=== PATIENT | female | born 1940 | race Caucasian/White ===

== ENCOUNTER 2016-11-28 17:28 | Inpatient (IN) | payer MEDICARE, OTHER ==
[~2016-11-28] VITALS: Ht 152.4 cm; Wt 61.0 kg
[~2016-11-28 17:28] MED LIST: ALPR0.254 PO; ALPR1TAB2 PO; ASPI-621 PO; CEFD300C2 PO; CEPH-368 PO; CETI10CA PO; CHOL200012 PO; CIPR500T87 PO; CLON1PAT7 TD; CYAN10005 PO; ENOX40SY4 SQ; ENOX80SY5 SQ; FLUC200T PO; FOLI-17 PO; GABA600T2 PO; HYDR1KIT14 TP; HYDR20TA22 PO; LISI2.5T PO; LISI5TAB7 PO; MAGN400T26 PO; METH750T2 PO; OMEP-110 PO; OMEP40CA6 PO; OXYB5TAB7 PO; OXYC-229 PO; OXYC-302 PO; OXYC10TA32 PO; OXYC1TAB8 PO; PANT40TA3 PO; POLY17PO5 PO; POTA20PA8 PO; PROM25SU34 RC; SENN1TAB7 PO; SIMV40TA3 PO; SIMV5TAB PO; THIA100T6 PO; TRAM50TA2 PO; WARF1TAB7 PO; WARF5TAB7 PO-COUM
[2016-11-28] MEDS ORDERED: ONDANSETRON 2MG/ML, 2ML ONE (18:29)
[2016-11-28] MEDS ORDERED: SODIUM CHLORIDE FLUSH 10ML SYR IVF ONE (18:30)
[2016-11-28] MEDS ORDERED: ONDANSETRON 2MG/ML, 2ML IVPush ONE (18:30)
[2016-11-28] MEDS ORDERED: SODIUM CHLORIDE 0.9% 1,000ML IVBOLUS ONE (18:30)
[2016-11-28] MEDS ORDERED: AMOX600S36 PO (19:11)
[2016-11-28] MEDS ORDERED: CEPH-368 PO (19:11)
[2016-11-28 19:15] LABS: HEMOGLOBIN 13.8 g/dL (11.7-16.4)
[2016-11-28] MEDS ORDERED: DEXT1CAP PO (19:16)
[2016-11-28] MEDS ORDERED: SIMV20TA PO (19:16)
[2016-11-28] MEDS ORDERED: OXYC40TA27 PO (19:16)
[2016-11-28 19:27] LABS: ASPARTATE AMINO TRANSFERASE 27 U/L (15-37); BLOOD UREA NITROGEN 14 mg/dL (7-18)
[2016-11-28 19:33] LABS: IS PT STATUS REG ER OR PRE ER? YES
[2016-11-28] MEDS ORDERED: LEVOFLOXACIN/PMX 750MG/150ML 150 ML IV ONE (22:00)
[2016-11-28] MEDS ORDERED: LEVOFLOXACIN/PMX 750MG/150ML 150 ML ONE (22:24)
[2016-11-28] MEDS ORDERED: SODI453. PO (22:58)
[2016-11-29] MEDS ORDERED: LABETALOL 5MG/ML, 20ML IV PRN (02:00)
[2016-11-29] MEDS ORDERED: DOCUSATE 100 MG CAPSULE PO PRN (02:00)
[2016-11-29] MEDS ORDERED: BISACODYL 10 MG SUPP PR PRN (02:00)
[2016-11-29] MEDS ORDERED: LEVOFLOXACIN/PMX 500MG/100ML 100 ML IV SCH (02:00)
[2016-11-29] MEDS ORDERED: POLYETHYLENE GLYCOL 17 GM PACKET PO PRN (02:00)
[2016-11-29] MEDS ORDERED: ONDANSETRON 2MG/ML, 2ML IVP PRN (02:00)
[2016-11-29] MEDS ORDERED: TRAZODONE 50MG TABLET PO PRN (02:00)
[2016-11-29 05:57] LABS: BLOOD UREA NITROGEN 12 mg/dL (7-18); IS PT STATUS REG ER OR PRE ER? YES
[2016-11-29] MEDS ORDERED: OxyconTIN ER 40 MG TAB.ER PO SCH (09:00)
[2016-11-29] MEDS: GABAPENTIN 300 MG CAPSULE PO SCH (09:17)
[2016-11-29] MEDS: OMEPRAZOLE 20 MG CAPSULE.DR PO SCH (09:17)
[2016-11-29] MEDS: OxyconTIN ER 10 MG TAB.ER PO SCH ×2 (09:17→20:50)
[2016-11-29 11:41] LABS: IS PT STATUS REG ER OR PRE ER? YES
[2016-11-29] MEDS ORDERED: CEFTRIAXONE PMX 1GM/50ML 50 ML ONE (12:08)
[2016-11-29] MEDS: CEFTRIAXONE PMX 1GM/50ML 50 ML IV SCH (12:13)
[2016-11-29 17:05] VITALS: BP 107/61
[2016-11-29 19:21] VITALS: BP 120/73
[2016-11-29] MEDS: SIMVASTATIN 20 MG TABLET PO SCH (20:51)
[2016-11-30 01:08] VITALS: BP 108/53
[2016-11-30 07:07] VITALS: BP 123/64
[2016-11-30] MEDS: ASPIRIN 81 MG TABLET EC PO SCH (10:30)
[2016-11-30] MEDS: OMEPRAZOLE 20 MG CAPSULE.DR PO SCH (10:31)
[2016-11-30] MEDS: GABAPENTIN 300 MG CAPSULE PO SCH (10:31)
[2016-11-30] MEDS: OxyconTIN ER 10 MG TAB.ER PO SCH ×2 (10:33→21:12)
[2016-11-30] MEDS: CEFTRIAXONE PMX 1GM/50ML 50 ML IV SCH (12:13)
[2016-11-30 13:46] VITALS: BP 92/50
[2016-11-30 14:35] VITALS: BP 101/57
[2016-11-30 19:45] VITALS: BP 94/54
[2016-11-30] MEDS: SIMVASTATIN 20 MG TABLET PO SCH (21:12)
[2016-12-01 02:59] VITALS: BP 102/62
[2016-12-01] MEDS: ASPIRIN 81 MG TABLET EC PO SCH (05:13)
[2016-12-01 07:00] VITALS: BP 126/66
[2016-12-01] MEDS: OxyconTIN ER 10 MG TAB.ER PO SCH ×2 (08:12→21:17)
[2016-12-01] MEDS: GABAPENTIN 300 MG CAPSULE PO SCH (08:12)
[2016-12-01] MEDS: OMEPRAZOLE 20 MG CAPSULE.DR PO SCH (08:13)
[2016-12-01] MEDS ORDERED: REGADENOSON 0.4 MG/5 ML SYRINGE ONE (08:44)
[2016-12-01 12:57] VITALS: BP 103/45
[2016-12-01] MEDS ORDERED: WARFARIN 5 MG TABLET PO-COUM SCH (18:00)
[2016-12-01 20:39] VITALS: BP 130/69
[2016-12-01] MEDS: CIPROFLOXACIN 500 MG TABLET PO SCH (21:17)
[2016-12-01] MEDS: SIMVASTATIN 20 MG TABLET PO SCH (21:17)
[2016-12-02 01:41] VITALS: BP 124/79
[2016-12-02] MEDS: ASPIRIN 81 MG TABLET EC PO SCH (05:26)
[2016-12-02 06:52] VITALS: BP 131/71
[2016-12-02] MEDS: CIPROFLOXACIN 500 MG TABLET PO SCH (08:43)
[2016-12-02] MEDS: OxyconTIN ER 10 MG TAB.ER PO SCH (08:43)
[2016-12-02] MEDS: GABAPENTIN 300 MG CAPSULE PO SCH (08:43)
[2016-12-02] MEDS: OMEPRAZOLE 20 MG CAPSULE.DR PO SCH (08:43)
[2016-12-02] MEDS ORDERED: CIPR500T87 PO (09:40)
[2016-12-02 13:09] VITALS: BP 138/74
== END 2016-12-02 16:44 | disposition home health service (06) | DRG 690 ==
LOC: ED 17:43 → EDIP 22:11 → 3NE 11-29 15:09 → 4EST 11-30 14:24 → DCLOUNGE 12-02 15:49
PROVIDERS: ADMIT Internal Medicine; ATTEND Internal Medicine
PROC: 0T9B70Z Drainage of Bladder with Drainage Device, Via Natural or Artificial Opening (ICD-10-PCS; principal; 2016-11-28)
DX: N39.0 Urinary tract infection, site not specified (principal); D68.69 Other thrombophilia; C74.90 Malignant neoplasm of unspecified part of unspecified adrenal gland; I62.9 Nontraumatic intracranial hemorrhage, unspecified; I10 Essential (primary) hypertension; B96.5 Pseudomonas (aeruginosa) (mallei) (pseudomallei) as the cause of diseases classified elsewhere; E78.00 Pure hypercholesterolemia, unspecified; M54.9 Dorsalgia, unspecified; R00.1 Bradycardia, unspecified; T45.515A Adverse effect of anticoagulants, initial encounter; I25.10 Atherosclerotic heart disease of native coronary artery without angina pectoris; I25.2 Old myocardial infarction; Z74.01 Bed confinement status; Z79.01 Long term (current) use of anticoagulants; Z86.73 Personal history of transient ischemic attack (TIA), and cerebral infarction without residual deficits; Z87.440 Personal history of urinary (tract) infections; Z90.81 Acquired absence of spleen; Z95.2 Presence of prosthetic heart valve; Z90.49 Acquired absence of other specified parts of digestive tract; Z88.6 Allergy status to analgesic agent; Z88.5 Allergy status to narcotic agent; Z88.2 Allergy status to sulfonamides; Z88.8 Allergy status to other drugs, medicaments and biological substances; M24.562 Contracture, left knee; M24.561 Contracture, right knee
CPT/HCPCS: 36415; 74176; 78452; 80048; 80053; 81001; 83690; 84484; 85025; 85610; 85730; 87077; 87086; 87186; 93005; 93017; 96374; J0696; J1956; J2405; J2785; A9502; C9898; J7030

== ENCOUNTER 2016-12-17 02:32 | Inpatient (IN) | payer MEDICARE, OTHER ==
[~2016-12-17] VITALS: Ht 160 cm; Wt 57.1 kg
[~2016-12-17 02:32] MED LIST changes: +AMOX600S36 PO; -CEFD300C2 PO; +CEFD300C37 PO; +DEXT1CAP PO; +OXYC40TA27 PO; +SIMV20TA PO; +SODI453. PO
[2016-12-17 03:46] LABS: ASPARTATE AMINO TRANSFERASE 22 U/L (15-37); BLOOD UREA NITROGEN 23 mg/dL (7-18)
[2016-12-17 03:52] LABS: IS PT STATUS REG ER OR PRE ER? YES
[2016-12-17] MEDS ORDERED: PIPERACILLIN/TAZO/PMX 3.375GM 50 ML IVPB ONE (04:30)
[2016-12-17] MEDS ORDERED: PIPERACILLIN/TAZO/PMX 3.375GM 50 ML ONE (04:58)
[2016-12-17] MEDS ORDERED: SODIUM CHLORIDE 0.9% 1,000 ML IV SCH (06:23)
[2016-12-17 06:25] VITALS: BP 122/59
[2016-12-17] MEDS ORDERED: WARFARIN 5 MG TABLET PO-COUM SCH (06:30)
[2016-12-17] MEDS ORDERED: POLYETHYLENE GLYCOL 17 GM PACKET PO PRN (06:30)
[2016-12-17] MEDS ORDERED: DOCUSATE 100 MG CAPSULE PO PRN (06:30)
[2016-12-17] MEDS ORDERED: LABETALOL 5MG/ML, 20ML IV PRN (06:30)
[2016-12-17] MEDS ORDERED: ENOXAPARIN 40 MG/0.4 ML SQ SCH (06:30)
[2016-12-17] MEDS ORDERED: BISACODYL 10 MG SUPP PR PRN (06:30)
[2016-12-17] MEDS ORDERED: TRAZODONE 50MG TABLET PO PRN (06:30)
[2016-12-17] MEDS ORDERED: PIPERACILLIN/TAZO/PMX 3.375GM 50 ML IV SCH (06:30)
[2016-12-17 07:45] VITALS: BP 107/64
[2016-12-17] MEDS: GABAPENTIN 300 MG CAPSULE PO SCH (09:24)
[2016-12-17] MEDS: FUROSEMIDE 20 MG/2 ML IV SCH ×2 (09:24→17:24)
[2016-12-17] MEDS: OxyconTIN ER 10 MG TAB.ER PO SCH ×2 (09:24→20:12)
[2016-12-17 13:05] VITALS: BP 104/56
[2016-12-17] MEDS ORDERED: PHARMACY MAY ADJ FOR RENAL FX MC PRN (17:00)
[2016-12-17 18:53] VITALS: BP 115/62
[2016-12-17] MEDS: SIMVASTATIN 20 MG TABLET PO SCH (20:12)
[2016-12-17] MEDS: PIPERACILLIN/TAZO/PMX 3.375GM 50 ML IV SCH (20:13)
[2016-12-18] MEDS: OXYcodone/APAP 10/325MG TABLET PO PRN
[2016-12-18] MEDS: PIPERACILLIN/TAZO/PMX 3.375GM 50 ML IV SCH ×3 (03:28→19:58)
[2016-12-18 03:34] VITALS: BP 91/55
[2016-12-18 06:45] LABS: ASPARTATE AMINO TRANSFERASE 16 U/L (15-37); BLOOD UREA NITROGEN 22 mg/dL (7-18)
[2016-12-18 07:48] VITALS: BP 85/47
[2016-12-18 08:42] VITALS: BP_SYST 100; BP_SYST 94; BP_DIAS 51; BP_DIAS 64
[2016-12-18] MEDS: GABAPENTIN 300 MG CAPSULE PO SCH (08:57)
[2016-12-18] MEDS: OxyconTIN ER 10 MG TAB.ER PO SCH ×2 (08:57→19:58)
[2016-12-18 08:59] VITALS: BP 102/58
[2016-12-18] MEDS ORDERED: FUROSEMIDE 20 MG/2 ML IV SCH (09:00)
[2016-12-18] MEDS: ONDANSETRON ODT 4 MG PO PRN (10:04)
[2016-12-18 13:51] VITALS: BP 88/56
[2016-12-18] MEDS: SIMVASTATIN 20 MG TABLET PO SCH (19:58)
[2016-12-18 20:48] VITALS: BP 96/61
[2016-12-19 01:14] VITALS: BP 96/58
[2016-12-19] MEDS: PIPERACILLIN/TAZO/PMX 3.375GM 50 ML IV SCH ×3 (04:09→20:46)
[2016-12-19 05:45] LABS: ASPARTATE AMINO TRANSFERASE 35 U/L (15-37); BLOOD UREA NITROGEN 20 mg/dL (7-18)
[2016-12-19 07:21] VITALS: BP 108/65
[2016-12-19] MEDS: GABAPENTIN 300 MG CAPSULE PO SCH (09:32)
[2016-12-19] MEDS: OxyconTIN ER 10 MG TAB.ER PO SCH ×2 (09:32→20:46)
[2016-12-19 14:12] VITALS: BP 103/61
[2016-12-19 19:07] VITALS: BP 100/56
[2016-12-19] MEDS: SIMVASTATIN 20 MG TABLET PO SCH (20:46)
[2016-12-20 01:27] VITALS: BP 108/63
[2016-12-20] MEDS: PIPERACILLIN/TAZO/PMX 3.375GM 50 ML IV SCH (05:04)
[2016-12-20 05:32] LABS: BLOOD UREA NITROGEN 23 mg/dL (7-18)
[2016-12-20 06:40] LABS: ANISOCYTOSIS 1+; ECHINOCYTES 1+; POIKILOCYTOSIS 1+
[2016-12-20 07:12] VITALS: BP 118/69
[2016-12-20] MEDS: GABAPENTIN 300 MG CAPSULE PO SCH (09:51)
[2016-12-20] MEDS: OxyconTIN ER 10 MG TAB.ER PO SCH ×2 (09:52→21:27)
[2016-12-20] MEDS ORDERED: FOSFOMYCIN 3 GM PACKET PO ONE (13:00)
[2016-12-20 13:50] VITALS: BP 126/74
[2016-12-20] MEDS ORDERED: WARFARIN 2 MG TABLET PO-COUM ONE (18:00)
[2016-12-20 19:52] VITALS: BP 136/74
[2016-12-20] MEDS: ONDANSETRON ODT 4 MG PO PRN (21:27)
[2016-12-20] MEDS: SIMVASTATIN 20 MG TABLET PO SCH (21:27)
[2016-12-21 01:26] VITALS: BP 140/60
[2016-12-21 05:27] LABS: BLOOD UREA NITROGEN 19 mg/dL (7-18)
[2016-12-21 05:28] LABS: ASPARTATE AMINO TRANSFERASE 29 U/L (15-37)
[2016-12-21 08:01] VITALS: BP 132/78
[2016-12-21] MEDS: OxyconTIN ER 10 MG TAB.ER PO SCH ×2 (08:45→20:39)
[2016-12-21] MEDS: ONDANSETRON ODT 4 MG PO PRN (08:45)
[2016-12-21] MEDS: GABAPENTIN 300 MG CAPSULE PO SCH (08:45)
[2016-12-21] MEDS: ENOXAPARIN 60 MG/0.6 ML SQ SCH ×2 (08:45→20:39)
[2016-12-21] MEDS: TAMSULOSIN 0.4 MG CAP.ER.24H PO SCH (12:02)
[2016-12-21 13:25] VITALS: BP 125/62
[2016-12-21] MEDS ORDERED: WARFARIN 7.5 MG TABLET PO-COUM ONE (18:00)
[2016-12-21] MEDS: SIMVASTATIN 20 MG TABLET PO SCH (20:39)
[2016-12-21 20:43] VITALS: BP 136/68
[2016-12-22 02:13] VITALS: BP 131/68
[2016-12-22 07:44] VITALS: BP 130/67
[2016-12-22] MEDS: TAMSULOSIN 0.4 MG CAP.ER.24H PO SCH (10:05)
[2016-12-22] MEDS: ENOXAPARIN 60 MG/0.6 ML SQ SCH (10:05)
[2016-12-22] MEDS: GABAPENTIN 300 MG CAPSULE PO SCH (10:05)
[2016-12-22] MEDS: OXYcodone/APAP 10/325MG TABLET PO PRN (10:13)
[2016-12-22] MEDS: OxyconTIN ER 10 MG TAB.ER PO SCH (10:31)
[2016-12-22] MEDS ORDERED: TAMS-11 PO (12:22)
[2016-12-22 13:15] VITALS: BP 104/51
[2016-12-22] MEDS ORDERED: WARFARIN 5 MG TABLET PO-COUM ONE (18:00)
== END 2016-12-22 18:30 | disposition home health service (06) | DRG 291 ==
LOC: ED 04:04 → EDIP 05:08 → 4WST 06:06 → 3NW 12-20 18:33
PROVIDERS: ADMIT Internal Medicine; ATTEND Internal Medicine
PROC: 0T9B70Z Drainage of Bladder with Drainage Device, Via Natural or Artificial Opening (ICD-10-PCS; principal; 2016-12-17)
DX: I11.0 Hypertensive heart disease with heart failure (principal); E43 Unspecified severe protein-calorie malnutrition; C74.00 Malignant neoplasm of cortex of unspecified adrenal gland; N39.0 Urinary tract infection, site not specified; I50.43 Acute on chronic combined systolic (congestive) and diastolic (congestive) heart failure; I25.10 Atherosclerotic heart disease of native coronary artery without angina pectoris; R79.1 Abnormal coagulation profile; B95.2 Enterococcus as the cause of diseases classified elsewhere; Z16.21 Resistance to vancomycin; B96.20 Unspecified Escherichia coli [E. coli] as the cause of diseases classified elsewhere; R31.29 Other microscopic hematuria; I25.2 Old myocardial infarction; Z85.858 Personal history of malignant neoplasm of other endocrine glands; Z86.73 Personal history of transient ischemic attack (TIA), and cerebral infarction without residual deficits; Z95.2 Presence of prosthetic heart valve; Z90.81 Acquired absence of spleen; Z88.6 Allergy status to analgesic agent; Z88.2 Allergy status to sulfonamides; Z88.8 Allergy status to other drugs, medicaments and biological substances; Z68.22 Body mass index [BMI] 22.0-22.9, adult; Z90.49 Acquired absence of other specified parts of digestive tract
CPT/HCPCS: 36415; 71010; 80048; 80053; 81001; 82040; 83880; 84484; 85025; 85610; 87040; 87077; 87086; 87186; 93005; 93306; 99285; J1650; J2543; Q0162; J1940

== ENCOUNTER 2017-01-12 23:20 | Emergency (ER) | payer MEDICARE, MEDICAID ==
[~2017-01-12] VITALS: Ht 152.4 cm; Wt 45.5 kg
[~2017-01-12 23:20] MED LIST changes: +TAMS-11 PO
[2017-01-13 00:39] LABS: ASPARTATE AMINO TRANSFERASE 35 U/L (15-37); BLOOD UREA NITROGEN 22 mg/dL (7-18)
[2017-01-13] MEDS ORDERED: NITROFURANTOIN (MACROBID) 100 MG CAPSULE PO ONE (01:30)
[2017-01-13 02:05] VITALS: BP 148/68
[2017-01-14] MEDS ORDERED: CHOL20002 PO (17:43)
[2017-01-14] MEDS ORDERED: MEGE400O2 PO (17:43)
[2017-01-14] MEDS ORDERED: DOCU100C PO (17:43)
[2017-01-14] MEDS ORDERED: OMEP40CA6 PO (17:43)
[2017-01-14] MEDS ORDERED: CEPH-368 PO (17:43)
[2017-01-14] MEDS ORDERED: GABA600T2 PO (17:43)
[2017-01-14] MEDS ORDERED: ALPR0.254 PO (17:43)
[2017-01-14] MEDS ORDERED: GABA100C8 PO (17:43)
[2017-01-14] MEDS ORDERED: ANTIDIARRHEA PO (17:43)
[2017-01-14] MEDS ORDERED: WARF3TAB7 PO (17:43)
[2017-01-14] MEDS ORDERED: allertec PO (17:43)
[2017-01-14] MEDS ORDERED: WARF1TAB7 PO (17:43)
== END 2017-01-13 02:08 | disposition home or self-care (01) ==
LOC: ED 23:59
DX: N30.00 Acute cystitis without hematuria (principal); E86.0 Dehydration; I10 Essential (primary) hypertension; M54.9 Dorsalgia, unspecified; G89.29 Other chronic pain; Z95.2 Presence of prosthetic heart valve; Z79.01 Long term (current) use of anticoagulants; Z88.2 Allergy status to sulfonamides
CPT/HCPCS: 36415; 51701; 80053; 81001; 85025; 87077; 87086; 87106

== ENCOUNTER 2017-01-14 14:39 | Inpatient (IN) | payer MEDICARE, OTHER, MEDICAID ==
[~2017-01-14] VITALS: Ht 167.6 cm; Wt 54.1 kg
[2017-01-14] MEDS ORDERED: SODIUM CHLORIDE FLUSH 10ML SYR IVF ONE (15:00)
[2017-01-14 15:27] LABS: ASPARTATE AMINO TRANSFERASE 31 U/L (15-37); BLOOD UREA NITROGEN 20 mg/dL (7-18)
[2017-01-14 15:35] LABS: ANISOCYTOSIS 1+; ECHINOCYTES 1+
[2017-01-14] MEDS ORDERED: PHYTONADIONE 5 MG TABLET PO ONE (16:30)
[2017-01-14] MEDS ORDERED: CEFTRIAXONE 1,000 MG in SODIUM CHLORIDE 0.9% 50 ML IV ONE (17:00)
[2017-01-14] MEDS ORDERED: SODIUM CHLORIDE 0.9% 1,000 ML IV SCH (17:14)
[2017-01-14] MEDS ORDERED: ONDANSETRON 2MG/ML, 2ML IVPush PRN (17:30)
[2017-01-14] MEDS ORDERED: ONDANSETRON ODT 4 MG PO PRN (17:30)
[2017-01-14] MEDS ORDERED: HEPARIN 5,000 UNITS/ML, 1ML SQ SCH (17:30)
[2017-01-14] MEDS ORDERED: allertec PO (17:43)
[2017-01-14] MEDS ORDERED: CEPH-368 PO (17:43)
[2017-01-14] MEDS ORDERED: GABA100C8 PO (17:43)
[2017-01-14] MEDS ORDERED: ALPR0.254 PO (17:43)
[2017-01-14] MEDS ORDERED: DOCU100C PO (17:43)
[2017-01-14] MEDS ORDERED: ANTIDIARRHEA PO (17:43)
[2017-01-14] MEDS ORDERED: WARF1TAB7 PO (17:43)
[2017-01-14] MEDS ORDERED: CHOL20002 PO (17:43)
[2017-01-14] MEDS ORDERED: WARF3TAB7 PO (17:43)
[2017-01-14] MEDS ORDERED: MEGE400O2 PO (17:43)
[2017-01-14] MEDS ORDERED: OMEP40CA6 PO (17:43)
[2017-01-14] MEDS ORDERED: GABA600T2 PO (17:43)
[2017-01-14] MEDS ORDERED: ERTAPENEM 1 GM in SODIUM CHLORIDE 0.9% 50 ML IV SCH (18:30)
[2017-01-14 18:45] VITALS: BP 154/74
[2017-01-14] MEDS: GABAPENTIN 300 MG CAPSULE PO SCH (20:14)
[2017-01-14] MEDS: SIMVASTATIN 40 MG TABLET PO SCH (20:14)
[2017-01-14] MEDS ORDERED: SIMVASTATIN 20 MG TABLET PO SCH (21:00)
[2017-01-14] MEDS ORDERED: OxyconTIN ER 40 MG TAB.ER PO SCH (21:00)
[2017-01-14] MEDS ORDERED: ALPRazolam 1MG TABLET PO SCH (21:00)
[2017-01-14] MEDS ORDERED: TEMPLATE NON-FORMULARY MED. (Gabapentin** 600 MG) PO SCH (21:00)
[2017-01-14] MEDS: LINEZOLID PMX 600MG/300ML 300 ML IV SCH (21:41)
[2017-01-15 03:08] VITALS: BP 152/69
[2017-01-15 06:14] LABS: ASPARTATE AMINO TRANSFERASE 24 U/L (15-37); BLOOD UREA NITROGEN 19 mg/dL (7-18)
[2017-01-15 07:46] VITALS: BP 138/68
[2017-01-15] MEDS: OxyconTIN ER 10 MG TAB.ER PO SCH (09:31)
[2017-01-15] MEDS: GABAPENTIN 300 MG CAPSULE PO SCH ×2 (09:31→20:43)
[2017-01-15] MEDS: TAMSULOSIN 0.4 MG CAP.ER.24H PO SCH (09:31)
[2017-01-15] MEDS: LINEZOLID PMX 600MG/300ML 300 ML IV SCH ×2 (09:32→20:43)
[2017-01-15] MEDS ORDERED: POTASSIUM CHLORIDE 20 MEQ TAB.ER.PRT PO ONE (11:30)
[2017-01-15 14:30] VITALS: BP 114/71
[2017-01-15] MEDS ORDERED: POTASSIUM CHLORIDE 20 MEQ in SODIUM CHLORIDE 0.9% 1,000 ML IV SCH (18:30)
[2017-01-15] MEDS: ERTAPENEM 1 GM in SODIUM CHLORIDE 0.9% 100 ML IV SCH (19:37)
[2017-01-15] MEDS: SIMVASTATIN 40 MG TABLET PO SCH (20:43)
[2017-01-15 20:48] VITALS: BP 147/68
[2017-01-15] MEDS: DOCUSATE 100 MG CAPSULE PO SCH (23:35)
[2017-01-16 05:07] VITALS: BP 121/64
[2017-01-16 05:29] LABS: BLOOD UREA NITROGEN 11 mg/dL (7-18)
[2017-01-16 05:48] LABS: ECHINOCYTES 1+; HOWELL-JOLLY BODIES 1+; POIKILOCYTOSIS 1+
[2017-01-16 05:49] LABS: ANISOCYTOSIS 1+; LARGE PLATELETS 1+
[2017-01-16] MEDS: LINEZOLID PMX 600MG/300ML 300 ML IV SCH ×2 (08:24→16:40)
[2017-01-16] MEDS: ENOXAPARIN 40 MG/0.4 ML SQ SCH ×2 (08:25→19:42)
[2017-01-16] MEDS: DOCUSATE 100 MG CAPSULE PO SCH ×2 (08:25→21:00)
[2017-01-16] MEDS: TAMSULOSIN 0.4 MG CAP.ER.24H PO SCH (08:25)
[2017-01-16] MEDS: GABAPENTIN 300 MG CAPSULE PO SCH ×2 (08:25→19:42)
[2017-01-16 08:30] VITALS: BP 142/76
[2017-01-16] MEDS: OxyconTIN ER 10 MG TAB.ER PO SCH (08:31)
[2017-01-16] MEDS ORDERED: POTASSIUM CHLORIDE 10% 40 MEQ/30 ML UDC PO ONE (12:30)
[2017-01-16 14:30] VITALS: BP 120/66
[2017-01-16] MEDS ORDERED: WARFARIN 5 MG TABLET PO-COUM SCH (18:00)
[2017-01-16 19:27] VITALS: BP 131/69
[2017-01-16] MEDS: SIMVASTATIN 40 MG TABLET PO SCH (19:43)
[2017-01-16] MEDS: ERTAPENEM 1 GM in SODIUM CHLORIDE 0.9% 100 ML IV SCH (19:43)
[2017-01-17] MEDS: LINEZOLID PMX 600MG/300ML 300 ML IV SCH (03:24)
[2017-01-17 03:49] VITALS: BP 124/67
[2017-01-17] MEDS: ENOXAPARIN 40 MG/0.4 ML SQ SCH (06:14)
[2017-01-17 08:02] VITALS: BP 130/72
[2017-01-17] MEDS: GABAPENTIN 300 MG CAPSULE PO SCH (08:36)
[2017-01-17] MEDS: DOCUSATE 100 MG CAPSULE PO SCH (08:36)
[2017-01-17] MEDS: TAMSULOSIN 0.4 MG CAP.ER.24H PO SCH (08:36)
[2017-01-17] MEDS: OxyconTIN ER 10 MG TAB.ER PO SCH (08:36)
[2017-01-17 14:11] VITALS: BP 124/70
[2017-01-17] MEDS ORDERED: SIMV40TA3 PO (14:35)
[2017-01-17] MEDS ORDERED: TAMS0.4C2 PO (14:35)
[2017-01-17] MEDS ORDERED: WARF5TAB7 PO (14:36)
[2017-01-17] MEDS ORDERED: ONDA4TAB13 SL (14:38)
[2017-01-17] MEDS ORDERED: ONDA4VIA4 IVPush (14:40)
[2017-01-17] MEDS ORDERED: DOCU100C8 PO (14:40)
[2017-01-17] MEDS ORDERED: ENOX40SY4 SQ (14:41)
[2017-01-17] MEDS ORDERED: ERTA1VIA IV (14:42)
[2017-01-17] MEDS ORDERED: GABA300C10 PO (14:43)
[2017-01-17] MEDS ORDERED: LINE600I9 IV (14:44)
[2017-01-17] MEDS ORDERED: BACL-19 PO (14:46)
[2017-01-17] MEDS ORDERED: WARFARIN 5 MG TABLET PO-COUM SCH (18:00)
== END 2017-01-17 15:34 | DRG 71 ==
LOC: ED 16:41 → EDIP 16:53 → 3NE 18:02
PROVIDERS: ADMIT Family Medicine; ATTEND Family Medicine
PROC: 0T9B70Z Drainage of Bladder with Drainage Device, Via Natural or Artificial Opening (ICD-10-PCS; principal; 2017-01-14)
PROC: 02HV33Z Insertion of Infusion Device into Superior Vena Cava, Percutaneous Approach (ICD-10-PCS; 2017-01-17)
PROC: B5181ZA Fluoroscopy of Superior Vena Cava using Low Osmolar Contrast, Guidance (ICD-10-PCS; 2017-01-17)
DX: G93.41 Metabolic encephalopathy (principal); N39.0 Urinary tract infection, site not specified; I50.42 Chronic combined systolic (congestive) and diastolic (congestive) heart failure; C74.00 Malignant neoplasm of cortex of unspecified adrenal gland; I62.9 Nontraumatic intracranial hemorrhage, unspecified; I95.9 Hypotension, unspecified; E78.00 Pure hypercholesterolemia, unspecified; I25.10 Atherosclerotic heart disease of native coronary artery without angina pectoris; I11.0 Hypertensive heart disease with heart failure; J32.9 Chronic sinusitis, unspecified; G89.29 Other chronic pain; E87.6 Hypokalemia; B96.20 Unspecified Escherichia coli [E. coli] as the cause of diseases classified elsewhere; Z16.12 Extended spectrum beta lactamase (ESBL) resistance; L89.90 Pressure ulcer of unspecified site, unspecified stage; R62.7 Adult failure to thrive; Z95.2 Presence of prosthetic heart valve; Z79.01 Long term (current) use of anticoagulants; Z85.858 Personal history of malignant neoplasm of other endocrine glands; I25.2 Old myocardial infarction; Z90.81 Acquired absence of spleen; Z90.49 Acquired absence of other specified parts of digestive tract; Z88.5 Allergy status to narcotic agent; Z88.2 Allergy status to sulfonamides; Z88.8 Allergy status to other drugs, medicaments and biological substances; R53.1 Weakness
CPT/HCPCS: 36415; 36569; 51701; 70450; 76937; 77001; 80048; 80053; 81001; 83735; 85025; 85610; 85730; 87077; 87086; 87106; 87186; 93005; J0696; J1335; J1650; J2020; C1751; P9612

== ENCOUNTER 2017-02-24 21:43 | Inpatient (IN) | payer MEDICARE, MEDICAID ==
[~2017-02-24] VITALS: Ht 152.4 cm; Wt 55.2 kg
[~2017-02-24 21:43] MED LIST changes: +ANTIDIARRHEA PO; +BACL-19 PO; +CHOL20002 PO; +DOCU100C PO; +DOCU100C8 PO; +ERTA1VIA IV; +GABA-826 PO; +GABA300C10 PO; +LINE600I9 IV; +MEGE400O2 PO; +ONDA4TAB13 SL; +ONDA4VIA4 IVPush; +TAMS0.4C2 PO; +WARF3TAB7 PO; +WARF5TAB7 PO; +allertec PO
[2017-02-24] MEDS ORDERED: SODIUM CHLORIDE 0.9% 1,000ML IVBOLUS ONE (23:30)
[2017-02-24] MEDS ORDERED: SODIUM CHLORIDE FLUSH 10ML SYR IVF ONE (23:30)
[2017-02-25 00:11] LABS: ASPARTATE AMINO TRANSFERASE 23 U/L (15-37); BLOOD UREA NITROGEN 26 mg/dL (7-18)
[2017-02-25 00:26] LABS: DIFF TOTAL CELLS COUNTED 100 CELL DIFF
[2017-02-25 00:29] LABS: VERIFY COUNTS? YES
[2017-02-25 00:30] LABS: LARGE PLATELETS 1+
[2017-02-25] MEDS ORDERED: DEXT1CAP PO (00:50)
[2017-02-25] MEDS ORDERED: LINEZOLID PMX 600MG/300ML 300 ML IV ONE (01:30)
[2017-02-25] MEDS ORDERED: SODIUM CHLORIDE 0.9% 1,000 ML IV SCH (04:12)
[2017-02-25] MEDS ORDERED: BISACODYL 10 MG SUPP PR PRN (04:30)
[2017-02-25] MEDS ORDERED: DOCUSATE 100 MG CAPSULE PO PRN (04:30)
[2017-02-25] MEDS ORDERED: POLYETHYLENE GLYCOL 17 GM PACKET PO PRN (04:30)
[2017-02-25] MEDS ORDERED: VANCOMYCIN PER PHARMACY MC PRN (04:30)
[2017-02-25] MEDS ORDERED: hydrALAzine 20 MG/ML, 1ML IVPush PRN (04:30)
[2017-02-25] MEDS ORDERED: PHARMACOKINETIC MONITORING MC PRN (05:00)
[2017-02-25] MEDS: MEROPENEM 1 GM in SODIUM CHLORIDE 0.9% 100 ML IV SCH ×3 (05:22→22:30)
[2017-02-25] MEDS: VANCOMYCIN 1,100 MG in SODIUM CHLORIDE 0.9% 250 ML IV SCH (06:35)
[2017-02-25 07:55] VITALS: BP 153/66
[2017-02-25] MEDS: TAMSULOSIN 0.4 MG CAP.ER.24H PO SCH (08:50)
[2017-02-25] MEDS: DEXTROMETHORPHAN HBR PO SCH (08:50)
[2017-02-25] MEDS: BACLOFEN 10 MG TABLET PO SCH ×2 (08:50→22:21)
[2017-02-25] MEDS: QUINIDINE PO SCH (08:50)
[2017-02-25] MEDS: CHOLECALCIFEROL 1,000 UNIT TABLET PO SCH (08:50)
[2017-02-25] MEDS: GABAPENTIN 300 MG CAPSULE PO SCH ×2 (08:50→22:21)
[2017-02-25] MEDS: MEGESTROL ORAL.SUSP 40 MG/ML PO SCH (08:51)
[2017-02-25] MEDS: OxyconTIN ER 10 MG TAB.ER PO SCH (08:51)
[2017-02-25] MEDS: LACTOBACILLUS CHEW TABLET PO SCH ×3 (11:00→22:21)
[2017-02-25 12:30] VITALS: BP 155/72
[2017-02-25 20:22] VITALS: BP 105/58
[2017-02-25] MEDS: TRAZODONE 50MG TABLET PO PRN (22:21)
[2017-02-25] MEDS: SIMVASTATIN 40 MG TABLET PO SCH (22:21)
[2017-02-26 00:51] VITALS: BP 114/68
[2017-02-26] MEDS ORDERED: SODIUM CHLORIDE 0.9% 1,000 ML IV SCH (04:12)
[2017-02-26] MEDS: LACTOBACILLUS CHEW TABLET PO SCH ×4 (05:04→21:00)
[2017-02-26] MEDS: VANCOMYCIN 1,100 MG in SODIUM CHLORIDE 0.9% 250 ML IV SCH (05:05)
[2017-02-26 06:07] LABS: BLOOD UREA NITROGEN 15 mg/dL (7-18)
[2017-02-26] MEDS: MEROPENEM 1 GM in SODIUM CHLORIDE 0.9% 100 ML IV SCH ×3 (07:26→22:41)
[2017-02-26 08:15] VITALS: BP 110/69
[2017-02-26] MEDS: QUINIDINE PO SCH (09:00)
[2017-02-26] MEDS: DEXTROMETHORPHAN HBR PO SCH (09:00)
[2017-02-26] MEDS: OxyconTIN ER 10 MG TAB.ER PO SCH (09:30)
[2017-02-26] MEDS: BACLOFEN 10 MG TABLET PO SCH ×2 (09:30→21:00)
[2017-02-26] MEDS: TAMSULOSIN 0.4 MG CAP.ER.24H PO SCH (09:30)
[2017-02-26] MEDS: GABAPENTIN 300 MG CAPSULE PO SCH ×2 (09:30→21:00)
[2017-02-26] MEDS: CHOLECALCIFEROL 1,000 UNIT TABLET PO SCH (09:30)
[2017-02-26] MEDS: MEGESTROL ORAL.SUSP 40 MG/ML PO SCH (09:30)
[2017-02-26 12:21] VITALS: BP 111/56
[2017-02-26 20:01] VITALS: BP 150/77
[2017-02-26] MEDS: SIMVASTATIN 40 MG TABLET PO SCH (21:00)
[2017-02-27 00:43] VITALS: BP 137/74
[2017-02-27] MEDS ORDERED: SODIUM CHLORIDE 0.9% 1,000 ML IV SCH (04:12)
[2017-02-27] MEDS: VANCOMYCIN 1,100 MG in SODIUM CHLORIDE 0.9% 250 ML IV SCH (04:43)
[2017-02-27 05:45] LABS: BLOOD UREA NITROGEN 18 mg/dL (7-18)
[2017-02-27] MEDS: LACTOBACILLUS CHEW TABLET PO SCH ×5 (06:26→22:59)
[2017-02-27] MEDS: MEROPENEM 1 GM in SODIUM CHLORIDE 0.9% 100 ML IV SCH ×3 (06:26→22:59)
[2017-02-27 08:00] VITALS: BP 127/75
[2017-02-27] MEDS: DEXTROMETHORPHAN HBR PO SCH (09:00)
[2017-02-27] MEDS: QUINIDINE PO SCH (09:00)
[2017-02-27] MEDS: MEGESTROL ACETATE 400 MG/10 ML ML PO SCH (09:33)
[2017-02-27] MEDS: CHOLECALCIFEROL 1,000 UNIT TABLET PO SCH (09:33)
[2017-02-27] MEDS: GABAPENTIN 300 MG CAPSULE PO SCH ×2 (09:33→22:59)
[2017-02-27] MEDS: OxyconTIN ER 10 MG TAB.ER PO SCH (09:33)
[2017-02-27] MEDS: TAMSULOSIN 0.4 MG CAP.ER.24H PO SCH (09:33)
[2017-02-27] MEDS: BACLOFEN 10 MG TABLET PO SCH ×2 (09:33→23:00)
[2017-02-27 13:51] VITALS: BP 106/71
[2017-02-27] MEDS ORDERED: WARFARIN 2.5 MG TABLET PO-COUM SCH (18:00)
[2017-02-27 19:37] VITALS: BP 105/67
[2017-02-27] MEDS: SIMVASTATIN 40 MG TABLET PO SCH (22:59)
[2017-02-27] MEDS: TRAZODONE 50MG TABLET PO PRN (22:59)
[2017-02-28 01:02] VITALS: BP 112/64
[2017-02-28] MEDS: LACTOBACILLUS CHEW TABLET PO SCH ×4 (06:00→21:03)
[2017-02-28] MEDS: MEROPENEM 1 GM in SODIUM CHLORIDE 0.9% 100 ML IV SCH ×3 (06:43→22:28)
[2017-02-28] MEDS: TAMSULOSIN 0.4 MG CAP.ER.24H PO SCH (08:04)
[2017-02-28] MEDS: GABAPENTIN 300 MG CAPSULE PO SCH ×2 (08:04→21:03)
[2017-02-28] MEDS: BACLOFEN 10 MG TABLET PO SCH ×2 (08:04→21:03)
[2017-02-28] MEDS: OxyconTIN ER 10 MG TAB.ER PO SCH (08:04)
[2017-02-28] MEDS: DEXTROMETHORPHAN HBR PO SCH (08:05)
[2017-02-28] MEDS: QUINIDINE PO SCH (08:05)
[2017-02-28] MEDS: CHOLECALCIFEROL 1,000 UNIT TABLET PO SCH (08:05)
[2017-02-28 08:32] VITALS: BP 122/79
[2017-02-28] MEDS: MEGESTROL ACETATE 400 MG/10 ML ML PO SCH (10:47)
[2017-02-28 15:30] VITALS: BP 96/51
[2017-02-28] MEDS ORDERED: WARFARIN 5 MG TABLET PO-COUM SCH (18:00)
[2017-02-28 19:47] VITALS: BP 124/71
[2017-02-28] MEDS: SIMVASTATIN 40 MG TABLET PO SCH (21:03)
[2017-02-28] MEDS: TRAZODONE 50MG TABLET PO PRN (21:03)
[2017-03-01 02:20] VITALS: BP 124/73
[2017-03-01] MEDS: LACTOBACILLUS CHEW TABLET PO SCH ×4 (06:26→23:16)
[2017-03-01] MEDS: MEROPENEM 1 GM in SODIUM CHLORIDE 0.9% 100 ML IV SCH ×3 (06:26→23:17)
[2017-03-01 08:28] VITALS: BP 100/61
[2017-03-01] MEDS: TAMSULOSIN 0.4 MG CAP.ER.24H PO SCH (08:42)
[2017-03-01] MEDS: CHOLECALCIFEROL 1,000 UNIT TABLET PO SCH (08:42)
[2017-03-01] MEDS: GABAPENTIN 300 MG CAPSULE PO SCH ×2 (08:43→23:16)
[2017-03-01] MEDS: BACLOFEN 10 MG TABLET PO SCH ×2 (08:43→23:16)
[2017-03-01] MEDS: OxyconTIN ER 10 MG TAB.ER PO SCH (08:43)
[2017-03-01] MEDS: QUINIDINE PO SCH (08:46)
[2017-03-01] MEDS: DEXTROMETHORPHAN HBR PO SCH (08:46)
[2017-03-01] MEDS: MEGESTROL ACETATE 400 MG/10 ML ML PO SCH (11:05)
[2017-03-01 13:33] VITALS: BP 115/62
[2017-03-01] MEDS ORDERED: WARFARIN 1 MG TABLET PO-COUM SCH (18:00)
[2017-03-01 19:45] VITALS: BP 120/61
[2017-03-01] MEDS: SIMVASTATIN 40 MG TABLET PO SCH (23:16)
[2017-03-02] MEDS ORDERED: OxyconTIN ER 10 MG TAB.ER PO SCH
[2017-03-02 03:30] VITALS: BP 112/70
[2017-03-02 06:06] LABS: BLOOD UREA NITROGEN 28 mg/dL (7-18)
[2017-03-02 07:17] VITALS: BP 122/70
[2017-03-02] MEDS: GABAPENTIN 300 MG CAPSULE PO SCH ×2 (07:48→20:32)
[2017-03-02] MEDS: MEROPENEM 1 GM in SODIUM CHLORIDE 0.9% 100 ML IV SCH ×3 (07:48→22:18)
[2017-03-02] MEDS: BACLOFEN 10 MG TABLET PO SCH ×2 (07:48→20:32)
[2017-03-02] MEDS: CHOLECALCIFEROL 1,000 UNIT TABLET PO SCH (07:48)
[2017-03-02] MEDS: TAMSULOSIN 0.4 MG CAP.ER.24H PO SCH (07:48)
[2017-03-02] MEDS: LACTOBACILLUS CHEW TABLET PO SCH ×4 (07:48→22:18)
[2017-03-02] MEDS: DEXTROMETHORPHAN HBR PO SCH (09:00)
[2017-03-02] MEDS: OxyconTIN ER 10 MG TAB.ER PO SCH ×2 (09:00→20:32)
[2017-03-02] MEDS: QUINIDINE PO SCH (09:00)
[2017-03-02 14:14] VITALS: BP 128/75
[2017-03-02] MEDS ORDERED: WARFARIN 2 MG TABLET PO-COUM SCH (18:00)
[2017-03-02] MEDS: SIMVASTATIN 40 MG TABLET PO SCH (20:32)
[2017-03-02 20:35] VITALS: BP 103/65
[2017-03-03 00:55] VITALS: BP 109/66
[2017-03-03] MEDS: LACTOBACILLUS CHEW TABLET PO SCH ×2 (05:38→10:09)
[2017-03-03] MEDS: GABAPENTIN 300 MG CAPSULE PO SCH (07:50)
[2017-03-03] MEDS: CHOLECALCIFEROL 1,000 UNIT TABLET PO SCH (07:50)
[2017-03-03] MEDS: MEROPENEM 1 GM in SODIUM CHLORIDE 0.9% 100 ML IV SCH (07:50)
[2017-03-03] MEDS: TAMSULOSIN 0.4 MG CAP.ER.24H PO SCH (07:50)
[2017-03-03 08:03] VITALS: BP 133/60
[2017-03-03] MEDS: QUINIDINE PO SCH (09:00)
[2017-03-03] MEDS: DEXTROMETHORPHAN HBR PO SCH (09:00)
[2017-03-03] MEDS: OxyconTIN ER 10 MG TAB.ER PO SCH (09:00)
[2017-03-03] MEDS: BACLOFEN 10 MG TABLET PO SCH (10:09)
[2017-03-03 13:13] VITALS: BP 92/58
[2017-03-03] MEDS ORDERED: MERO1PIG IV (15:13)
[2017-03-03] MEDS ORDERED: Initiate Coumadin Protocol MC (15:13)
[2017-03-03] MEDS ORDERED: WARFARIN 3 MG TABLET PO-COUM SCH (18:00)
== END 2017-03-03 15:36 | DRG 689 ==
LOC: ED 23:59 → EDIP 02-25 01:19 → 4NOR 02-25 02:50 → 3NE 03-02 18:05
PROVIDERS: ADMIT Internal Medicine; ATTEND Internal Medicine
PROC: 0T9B70Z Drainage of Bladder with Drainage Device, Via Natural or Artificial Opening (ICD-10-PCS; principal; 2017-02-25)
PROC: 02HV33Z Insertion of Infusion Device into Superior Vena Cava, Percutaneous Approach (ICD-10-PCS; 2017-03-02)
PROC: B5181ZA Fluoroscopy of Superior Vena Cava using Low Osmolar Contrast, Guidance (ICD-10-PCS; 2017-03-02)
PROC: B548ZZA Ultrasonography of Superior Vena Cava, Guidance (ICD-10-PCS; 2017-03-02)
DX: N39.0 Urinary tract infection, site not specified (principal); G93.41 Metabolic encephalopathy; D68.59 Other primary thrombophilia; I50.40 Unspecified combined systolic (congestive) and diastolic (congestive) heart failure; J98.11 Atelectasis; R78.81 Bacteremia; E78.5 Hyperlipidemia, unspecified; G93.89 Other specified disorders of brain; I11.0 Hypertensive heart disease with heart failure; I25.10 Atherosclerotic heart disease of native coronary artery without angina pectoris; I25.2 Old myocardial infarction; I35.1 Nonrheumatic aortic (valve) insufficiency; Z16.12 Extended spectrum beta lactamase (ESBL) resistance; B96.20 Unspecified Escherichia coli [E. coli] as the cause of diseases classified elsewhere; J32.9 Chronic sinusitis, unspecified; Z79.01 Long term (current) use of anticoagulants; Z85.858 Personal history of malignant neoplasm of other endocrine glands; Z86.73 Personal history of transient ischemic attack (TIA), and cerebral infarction without residual deficits; Z87.440 Personal history of urinary (tract) infections; Z87.891 Personal history of nicotine dependence; Z90.81 Acquired absence of spleen; Z95.2 Presence of prosthetic heart valve; Z90.49 Acquired absence of other specified parts of digestive tract; Z79.899 Other long term (current) drug therapy; Z88.2 Allergy status to sulfonamides; Z88.6 Allergy status to analgesic agent; Z88.5 Allergy status to narcotic agent; Z88.8 Allergy status to other drugs, medicaments and biological substances
CPT/HCPCS: 36415; 36569; 70450; 71010; 76937; 77001; 80048; 80053; 81001; 82040; 83605; 84145; 85025; 85610; 87040; 87077; 87086; 87186; 93306; 96361; 96365; J2020; J2185; J3370; C1751; J7030; J7050

== ENCOUNTER 2017-04-02 01:19 | Inpatient (IN) | payer MEDICARE, MEDICAID ==
[~2017-04-02] VITALS: Ht 152.4 cm; Wt 56.8 kg
[~2017-04-02 01:19] MED LIST changes: +DOCU100C33 PO; -DOCU100C8 PO; +Initiate Coumadin Protocol MC; +MERO1PIG IV
[2017-04-02 02:21] LABS: HEMATOCRIT 33.5 % (34.6-47.8); HEMOGLOBIN 10.8 g/dL (11.7-16.4); WHITE BLOOD COUNT 8.5 x10^3/uL (3.4-10)
[2017-04-02 02:33] LABS: ASPARTATE AMINO TRANSFERASE 77 U/L (15-37); BLOOD UREA NITROGEN 29 mg/dL (7-18)
[2017-04-02 02:41] LABS: IS PT STATUS REG ER OR PRE ER? YES
[2017-04-02] MEDS ORDERED: MEROPENEM 1 GM in SODIUM CHLORIDE 0.9% 100 ML IV ONE (04:00)
[2017-04-02] MEDS ORDERED: POLYETHYLENE GLYCOL 17 GM PACKET PO PRN (04:30)
[2017-04-02] MEDS ORDERED: DOCUSATE 100 MG CAPSULE PO PRN (04:30)
[2017-04-02] MEDS ORDERED: BISACODYL 10 MG SUPP PR PRN (04:30)
[2017-04-02] MEDS ORDERED: PHYTONADIONE 10 MG/ML, 1ML SQ ONE (04:30)
[2017-04-02] MEDS ORDERED: OMEP20CA14 PO (05:06)
[2017-04-02] MEDS ORDERED: SUVO10TA PO (05:06)
[2017-04-02] MEDS ORDERED: POLY17PO5 PO (05:06)
[2017-04-02] MEDS ORDERED: PARO10TA24 PO (05:06)
[2017-04-02] MEDS ORDERED: NITR100C56 PO (05:06)
[2017-04-02] MEDS: MEROPENEM 1 GM in SODIUM CHLORIDE 0.9% 100 ML IV SCH ×2 (05:39→22:05)
[2017-04-02] MEDS: SODIUM CHLORIDE 0.9% 1,000 ML IV SCH (05:40)
[2017-04-02 06:45] VITALS: BP 93/60
[2017-04-02 14:51] VITALS: BP 131/79
[2017-04-02] MEDS ORDERED: ONDANSETRON ODT 4 MG ONE (18:03)
[2017-04-02] MEDS: OxyconTIN ER 10 MG TAB.ER PO SCH (18:05)
[2017-04-02] MEDS: ONDANSETRON 2MG/ML, 2ML IVPush PRN (18:06)
[2017-04-02 19:04] VITALS: BP 129/65
[2017-04-02] MEDS: BACLOFEN 10 MG TABLET PO SCH (22:05)
[2017-04-02] MEDS: GABAPENTIN 300 MG CAPSULE PO SCH (22:05)
[2017-04-03] VITALS (8 sets, daily range): BP systolic 80–108; BP diastolic 44–64
[2017-04-03] MEDS: SODIUM CHLORIDE 0.9% 1,000 ML IV SCH ×2 (04:58→18:04)
[2017-04-03 05:21] LABS: BLOOD UREA NITROGEN 25 mg/dL (7-18)
[2017-04-03 06:04] LABS: HEMATOCRIT 29.2 % (34.6-47.8); HEMOGLOBIN 9.5 g/dL (11.7-16.4); WHITE BLOOD COUNT 3.2 x10^3/uL (3.4-10)
[2017-04-03] MEDS ORDERED: OxyconTIN ER 40 MG TAB.ER PO SCH (09:00)
[2017-04-03] MEDS: OxyconTIN ER 10 MG TAB.ER PO SCH ×2 (09:00→09:56)
[2017-04-03] MEDS: PAROXETINE 10 MG TABLET PO SCH (09:56)
[2017-04-03] MEDS: GABAPENTIN 300 MG CAPSULE PO SCH ×2 (09:56→20:18)
[2017-04-03] MEDS: OMEPRAZOLE 20 MG CAPSULE.DR PO SCH (09:56)
[2017-04-03] MEDS: POLYETHYLENE GLYCOL 17 GM PACKET PO SCH (09:56)
[2017-04-03] MEDS: BACLOFEN 10 MG TABLET PO SCH ×2 (09:56→20:18)
[2017-04-03] MEDS: MEROPENEM 1 GM in SODIUM CHLORIDE 0.9% 100 ML IV SCH ×2 (09:57→22:26)
[2017-04-03] MEDS ORDERED: SODIUM CHLORIDE 0.9%, 500ML IVBOLUS ONE (10:30)
[2017-04-03] MEDS ORDERED: VANCOMYCIN PER PHARMACY MC PRN (15:00)
[2017-04-03] MEDS ORDERED: PHARMACOKINETIC MONITORING MC PRN (15:30)
[2017-04-03] MEDS ORDERED: PHARMACOKINETIC CONSULTATION MC ONE (15:30)
[2017-04-03] MEDS: VANCOMYCIN PMX 1GM/200ML 200 ML IV SCH (15:50)
[2017-04-04 02:24] VITALS: BP 102/69
[2017-04-04 06:00] VITALS: BP 122/88
[2017-04-04 06:01] LABS: HEMATOCRIT 27.3 % (34.6-47.8); HEMOGLOBIN 8.8 g/dL (11.7-16.4)
[2017-04-04 06:10] LABS: BLOOD UREA NITROGEN 19 mg/dL (7-18)
[2017-04-04 06:14] LABS: ASPARTATE AMINO TRANSFERASE 217 U/L (15-37)
[2017-04-04] MEDS: SODIUM CHLORIDE 0.9% 1,000 ML IV SCH ×2 (08:21→22:20)
[2017-04-04] MEDS ORDERED: MAGNESIUM SULFATE PMX 2GM/50ML 50 ML IV ONE (08:30)
[2017-04-04 08:53] VITALS: BP 135/73
[2017-04-04] MEDS: OMEPRAZOLE 20 MG CAPSULE.DR PO SCH (08:59)
[2017-04-04] MEDS: POLYETHYLENE GLYCOL 17 GM PACKET PO SCH (08:59)
[2017-04-04] MEDS: POTASSIUM ACID PHOSPHATE 500 MG TABLET.SOL PO SCH ×3 (08:59→20:46)
[2017-04-04] MEDS: GABAPENTIN 300 MG CAPSULE PO SCH ×2 (08:59→20:45)
[2017-04-04] MEDS: PAROXETINE 10 MG TABLET PO SCH (08:59)
[2017-04-04] MEDS: OxyconTIN ER 10 MG TAB.ER PO SCH (09:00)
[2017-04-04] MEDS: BACLOFEN 10 MG TABLET PO SCH ×2 (09:00→20:46)
[2017-04-04] MEDS: MAGNESIUM OXIDE 400 MG TABLET PO SCH (09:00)
[2017-04-04] MEDS: MEROPENEM 1 GM in SODIUM CHLORIDE 0.9% 100 ML IV SCH ×2 (10:19→22:20)
[2017-04-04 14:22] VITALS: BP 159/83
[2017-04-04] MEDS: VANCOMYCIN PMX 1GM/200ML 200 ML IV SCH (16:09)
[2017-04-04] MEDS ORDERED: WARFARIN 5 MG TABLET PO-COUM SCH (18:00)
[2017-04-04 19:56] VITALS: BP 135/65
[2017-04-04] MEDS: ONDANSETRON 2MG/ML, 2ML IVPush PRN (21:13)
[2017-04-05 02:00] VITALS: BP 149/76
[2017-04-05] MEDS: POTASSIUM ACID PHOSPHATE 500 MG TABLET.SOL PO SCH (03:15)
[2017-04-05 05:18] LABS: HEMATOCRIT 28.4 % (34.6-47.8); HEMOGLOBIN 9.2 g/dL (11.7-16.4); WHITE BLOOD COUNT 7.7 x10^3/uL (3.4-10)
[2017-04-05 05:35] LABS: ASPARTATE AMINO TRANSFERASE 96 U/L (15-37); BLOOD UREA NITROGEN 14 mg/dL (7-18); TOTAL IRON BINDING CAPACITY 225 mcg/dL (250-450)
[2017-04-05] MEDS: GABAPENTIN 300 MG CAPSULE PO SCH ×2 (07:50→21:13)
[2017-04-05] MEDS: OMEPRAZOLE 20 MG CAPSULE.DR PO SCH (07:50)
[2017-04-05] MEDS: MAGNESIUM OXIDE 400 MG TABLET PO SCH (07:50)
[2017-04-05] MEDS: BACLOFEN 10 MG TABLET PO SCH ×2 (07:50→21:13)
[2017-04-05] MEDS: PAROXETINE 10 MG TABLET PO SCH (07:50)
[2017-04-05] MEDS: POLYETHYLENE GLYCOL 17 GM PACKET PO SCH (07:50)
[2017-04-05] MEDS: OxyconTIN ER 10 MG TAB.ER PO SCH (07:56)
[2017-04-05 09:29] VITALS: BP 145/71
[2017-04-05] MEDS: SODIUM CHLORIDE 0.9% 1,000 ML IV SCH (10:27)
[2017-04-05] MEDS: MEROPENEM 1 GM in SODIUM CHLORIDE 0.9% 100 ML IV SCH ×2 (10:27→22:06)
[2017-04-05 14:40] VITALS: BP 133/76
[2017-04-05] MEDS: VANCOMYCIN PMX 1GM/200ML 200 ML IV SCH (16:58)
[2017-04-05] MEDS ORDERED: WARFARIN 5 MG TABLET PO-COUM SCH (18:00)
[2017-04-05 19:20] VITALS: BP 126/66
[2017-04-06] MEDS: SODIUM CHLORIDE 0.9% 1,000 ML IV SCH ×2 (01:11→13:40)
[2017-04-06 04:27] VITALS: BP 133/71
[2017-04-06 05:46] LABS: ASPARTATE AMINO TRANSFERASE 47 U/L (15-37); BLOOD UREA NITROGEN 13 mg/dL (7-18)
[2017-04-06 05:46] LABS: HEMATOCRIT 29.5 % (34.6-47.8); HEMOGLOBIN 9.6 g/dL (11.7-16.4); WHITE BLOOD COUNT 8.2 x10^3/uL (3.4-10)
[2017-04-06 06:21] LABS: DIFF TOTAL CELLS COUNTED 100 CELL DIFF
[2017-04-06 06:22] LABS: VERIFY COUNTS? YES
[2017-04-06 06:23] LABS: ANISOCYTOSIS 1+; POLYCHROMASIA 1+
[2017-04-06 06:26] LABS: HOWELL-JOLLY BODIES 1+
[2017-04-06 08:18] VITALS: BP 149/72
[2017-04-06] MEDS: BACLOFEN 10 MG TABLET PO SCH (09:59)
[2017-04-06] MEDS: MAGNESIUM OXIDE 400 MG TABLET PO SCH (09:59)
[2017-04-06] MEDS: PAROXETINE 10 MG TABLET PO SCH (10:00)
[2017-04-06] MEDS: OxyconTIN ER 10 MG TAB.ER PO SCH (10:00)
[2017-04-06] MEDS: GABAPENTIN 300 MG CAPSULE PO SCH (10:00)
[2017-04-06] MEDS: POLYETHYLENE GLYCOL 17 GM PACKET PO SCH (10:00)
[2017-04-06] MEDS: OMEPRAZOLE 20 MG CAPSULE.DR PO SCH (10:00)
[2017-04-06] MEDS: MEROPENEM 1 GM in SODIUM CHLORIDE 0.9% 100 ML IV SCH (11:15)
[2017-04-06 13:18] VITALS: BP 108/65
[2017-04-06] MEDS ORDERED: NITR100C56 PO (13:33)
[2017-04-06] MEDS ORDERED: VANCOMYCIN 1,100 MG in SODIUM CHLORIDE 0.9% 250 ML IV ONE (16:00)
[2017-04-06] MEDS ORDERED: WARFARIN 7.5 MG TABLET PO-COUM SCH (18:00)
== END 2017-04-06 19:02 | disposition home health service (06) | DRG 689 ==
LOC: ED 01:55 → EDIP 04:12 → 3NE 06:11
PROVIDERS: ATTEND Family Medicine
PROC: 0T9B80Z Drainage of Bladder with Drainage Device, Via Natural or Artificial Opening Endoscopic (ICD-10-PCS; principal; 2017-04-02)
DX: N39.0 Urinary tract infection, site not specified (principal); G93.41 Metabolic encephalopathy; E43 Unspecified severe protein-calorie malnutrition; D68.318 Other hemorrhagic disorder due to intrinsic circulating anticoagulants, antibodies, or inhibitors; I11.0 Hypertensive heart disease with heart failure; I95.9 Hypotension, unspecified; I50.42 Chronic combined systolic (congestive) and diastolic (congestive) heart failure; E87.1 Hypo-osmolality and hyponatremia; D68.69 Other thrombophilia; C74.00 Malignant neoplasm of cortex of unspecified adrenal gland; I69.354 Hemiplegia and hemiparesis following cerebral infarction affecting left non-dominant side; T45.515A Adverse effect of anticoagulants, initial encounter; Z16.24 Resistance to multiple antibiotics; B96.20 Unspecified Escherichia coli [E. coli] as the cause of diseases classified elsewhere; D64.9 Anemia, unspecified; E78.5 Hyperlipidemia, unspecified; Z66 Do not resuscitate; B96.5 Pseudomonas (aeruginosa) (mallei) (pseudomallei) as the cause of diseases classified elsewhere; B95.2 Enterococcus as the cause of diseases classified elsewhere; E83.39 Other disorders of phosphorus metabolism; J32.9 Chronic sinusitis, unspecified; Z16.12 Extended spectrum beta lactamase (ESBL) resistance; E83.42 Hypomagnesemia; G89.29 Other chronic pain; I25.10 Atherosclerotic heart disease of native coronary artery without angina pectoris; I25.2 Old myocardial infarction; Z79.01 Long term (current) use of anticoagulants; Z85.528 Personal history of other malignant neoplasm of kidney; Z85.858 Personal history of malignant neoplasm of other endocrine glands; Z87.440 Personal history of urinary (tract) infections; Z87.891 Personal history of nicotine dependence; Z90.81 Acquired absence of spleen; Z95.2 Presence of prosthetic heart valve; Z90.49 Acquired absence of other specified parts of digestive tract; Z87.01 Personal history of pneumonia (recurrent); Z68.24 Body mass index [BMI] 24.0-24.9, adult; Z88.6 Allergy status to analgesic agent; Z88.1 Allergy status to other antibiotic agents; Z88.2 Allergy status to sulfonamides; Z88.8 Allergy status to other drugs, medicaments and biological substances
CPT/HCPCS: 36415; 70450; 71010; 76700; 80048; 80053; 80074; 80202; 81001; 82550; 83540; 83550; 83735; 83880; 84100; 84443; 84484; 85025; 85610; 85730; 87040; 87086; 87150; 93005; J2185; J2405; J3370; J3430; J3475; J7030; J7040; J7050